=== PATIENT | female | born 1945 | race Caucasian/White ===

== ENCOUNTER 2020-12-02 21:26 | Emergency (ER) | payer MEDICARE, SELFPAY ==
[2020-12-02 21:28] VITALS: BP 163/61; PULSE 103; RESP 18; TEMP 36.9; O2SAT 96; BMI 29.2
--- NOTE | 2020-12-02 21:36 | CTR_ITS ---
PROCEDURE INFORMATION: Exam: CT Head Without Contrast Exam date and time: 12/02/2020 9:38 PM Age: 38 years old Clinical indication: Altered mental status/memory loss; Patient HX: AMS. Patient non-verbal and non-compliant. No personal identification on person. TECHNIQUE: Imaging protocol: Computed tomography of the head without contrast. Radiation optimization: All CT scans at this facility use at least one of these dose optimization techniques: automated exposure control; mA and/or kV adjustment per patient size (includes targeted exams where dose is matched to clinical indication); or iterative reconstruction. COMPARISON: No relevant prior studies available. RADIATION DOSE METRICS: Total DLP (mGy-cm): 969.77 FINDINGS: Brain: No acute intracranial hemorrhage or mass effect. There is mild decreased attenuation in the periventricular white matter, likely from microvascular disease. No definite acute infarct by CT. MRI could be more sensitive/specific for detection, as clinically directed. Cerebral ventricles: Ventricle size appears within normal limits. Bones/joints: No definite acute skull fracture. Paranasal sinuses: Included paranasal sinuses are essentially clear. Mastoid air cells: No significant acute finding. Vasculature: Vascular calcifications in the internal carotid and vertebral basilar systems. CT/CT head wo con* [id number] IMPRESSION: 1. No acute intracranial hemorrhage or mass effect. 2. No definite acute infarct by CT, see above. 3. Other findings discussed above. Radiation Dose CTDIVOL = (mGy): DLP = 969.77 (mGy-cm)
--- NOTE | 2020-12-02 21:39 | XRR_ITS ---
PROCEDURE INFORMATION: Exam: XR Chest Exam date and time: 12/02/2020 9:47 PM Age: 38 years old Clinical indication: Patient HX: AMS. Patient non-verbal and non-compliant. No personal identification on person. TECHNIQUE: Imaging protocol: XR of the chest Views: 1 view. COMPARISON: No relevant prior studies available. FINDINGS: Lungs: Poor inspiration somewhat limits evaluation, especially of the lung bases. No definite CHF/pulmonary edema. Mild lower lung opacities, greater on the left, could represent pneumonitis or atelectasis. Please correlate clinically. Pleural spaces: No visible pneumothorax. No definite pleural fluid. Heart/Mediastinum: Heart size is upper range of normal. Bones/joints: No significant acute finding. Soft tissues: Surgical clips in the right axillary region. XR/XR chest 1V portable [id number] IMPRESSION: 1. Mild lower lung opacities, greater on the left, could represent pneumonitis or atelectasis. 2. Other findings discussed above.
--- NOTE | 2020-12-02 21:40 | ECG_ITS ---
[facility] Test Date: 2020-12-02 Pat Name: ERNIE BHATTI Department: Room: Gender: Female Review Assistant: : 1945 Requested By: Rhett Alexandra Order Number: [id number] [place] MD: Darrick Maher M.D. Measurements Intervals [place] Rate: 99 P: 64 OR: 129 QRS: 55 QRSD: 84 T: 44 QT: 370 QTc: 476 Interpretive Statements SINUS RHYTHM POSSIBLE LEFT ATRIAL ENLARGEMENT [-0.1mV P WAVE IN V1/V2] MODERATE ST DEPRESSION [0.05+ mV ST DEPRESSION] No previous ECG available for comparison Electronically Signed On 12-03-2020 22:45:08 CDT by Darrick Maher M.D. [id number] f
[2020-12-02] MEDS: haloperidol inj 5 mg/mL INJ 1 mL 3 MG IVP (21:49)
[2020-12-02 21:58] LABS: Basophils # 0.1 10^3/uL (0.0-0.1); Basophils % 1.1 %; Eosinophils # 0.2 10^3/uL (0.0-0.8); Eosinophils % 3.7 %; Lymphocytes # 1.1 10^3/uL (0.8-4.8); Lymphocytes % 23.7 %; Mean Corpuscular HGB Conc 31.3 g/dL (30.0-36.0); Mean Corpuscular Hemoglobin 30.8 pg (28.0-34.0); Mean Corpuscular Volume 98.5 fL (81-99); Mean Platelet Volume 10.7 fL (7.4-10.4); Monocytes # 0.6 10^3/uL (0.2-0.9); Neutrophils # 2.71 10^3/uL (1.8-7.7); Neutrophils % 58.8 %; Nucleated Red Blood Cells % 0 %; Platelet Count 199 10^3/cmm (130-400); Red Blood Count 3.25 10^6/uL (4.1-5.3); Red Cell Distribution Width 13.7 % (12.1-15.1); White Blood Count 4.6 10^3/uL (4.0-10.0)
[2020-12-02 22:05] LABS: ABG PCO2 39.4 mmHg (35-45); ABG PH Result 7.43 (7.35-7.45); Arterial Blood Gas Hematocrit 31.2 % (37-47); Blood Gas Sample Site Brachial, left; Blood Gas Sample Type Arterial; HCO3 ABG 26.4 mmol/L (22-26); Oxygen Device ROOM AIR; PO2 ABG 76.6 mmHg (80.0-100.0)
[2020-12-02 22:17] LABS: Lactate (Lactic Acid level) 1.6 mmol/L (0.5-2.2)
[2020-12-02 22:20] LABS: Alanine Aminotransferase 15 U/L (0-33); Albumin Level 3.9 g/dL (3.5-5.2); Alkaline Phosphatase 86 IU/L (35-105); Aspartate Amino Transferase 19 U/L (0-32); Blood Urea Nitrogen 24 mg/dL (6-20); Calcium 9.5 mg/dL (8.5-10.5); Carbon Dioxide 22 mmol/L (22-29); Chloride 106 mmol/L (98-107); Creatine Phosphokinase 92 U/L (26-192); Globulin 2.7 g/dL (1.3-4.6); Glomerular Filtration Rate 80.3 mL/min (90-130); Glucose 105 mg/dL (65-115); Magnesium 1.9 mg/dL (1.7-2.3); Osmolality Calculated 290 mOsm/kg (285-295); Sodium 138 mmol/L (136-145); Total Bilirubin 0.3 mg/dL (0.15-1.2); Total Protein 6.6 g/dL (6.6-8.7)
[2020-12-02 22:21] LABS: Troponin(5th) Baseline 26 ng/L (0-10)
[2020-12-02 22:22] LABS: Alcohol Level < 10 mg/dL (0-10)
[2020-12-02 22:23] LABS: Anion Gap 14.3 (5-19); Potassium 4.3 mmol/L (3.5-5.1)
[2020-12-02 22:27] LABS: Ammonia 23 umol/L (11-51)
--- NOTE | 2020-12-02 23:40 | ECG_ITS ---
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 Measurements Intervals [place] Rate: 94 P: 64 OR: 140 QRS: 33 QRSD: 82 T: 47 QT: 367 QTc: 459 Interpretive Statements SINUS RHYTHM POSSIBLE LEFT ATRIAL ENLARGEMENT [-0.1mV P WAVE IN V1/V2] Compared to ECG 12/02/2020 21:56:44 ST (T wave) deviation no longer present Electronically Signed On 12-03-2020 22:52:27 CDT by Darrick Maher M.D. [id number] f
[2020-12-03 00:04] VITALS: PULSE 78; RESP 18; O2SAT 98
--- NOTE | 2020-12-03 04:54 | ED_ITS ---
HPI - Altered Mental Status General: Chief Complaint: Altered Mental Status Stated Complaint: ams Time Seen by Provider: 12/02/20 21:32 History of Present Illness: HPI narrative: 75-year-old female who entered [facility], and seemed to be disoriented. Evidently, on scene, she did not know her name or where she was. An ambulance was called. She presents here, and does not know her name, does not answer questions appropriately, repeats phrases, and is restless. MD complaint: altered mental status and confusion Onset (ago): unknown Severity: moderate Associated symptoms: Reports other (Unknown) Review of Systems General: Reports: ROS unobtainable due to medical condition Physical Exam Const: EXAM LIMITATIONS: altered mental status and behavioral limitations ORIENTATION/CONSCIOUSNESS: Yes awake and Yes confused; not oriented to person, not oriented to place and not oriented to time HENMT: COMMON NORMALS: normocephalic and Normal external nose present HEAD & SCALP: normal to inspection and normocephalic FACE & SINUS: normal facial exam NOSE: Normal external nose present Eye: COMMON NORMALS: Equal, round and reactive pupils present and EOMs intact bilaterally PUPIL: Yes Equal, round and reactive pupils present Chest: COMMONS NORMALS: normal inspection of the chest Resp: COMMON NORMALS: normal respiratory effort, No retractions, No use of accessory muscles and clear to auscultation bilaterally AUSCULTATION: clear to auscultation bilaterally Cardio: COMMON NORMALS: regular rate and regular rhythm RATE: regular rate RHYTHM: regular rhythm GI: COMMON NORMALS: Normal to inspection, nondistended, normoactive bowel sounds present, Soft to palpation and no masses PALPATION: Yes Soft to palpation Neuro: SENSORIUM/ORIENTATION: No oriented to person, No oriented to place and No oriented to time CRANIAL NERVES: Yes CN normal except as noted COORDINATION/BALANCE: does not sway with eyes open SPEECH: expressive aphasia GAIT: Yes Shuffling gait present SENSORY EXAM: No sensory level loss detected MOTOR EXAM: 5/5 motor strength present throughout COORDINATION: does not sway with eyes open Psych: COMMON NORMALS: negative for activity/motor behavior normal APPEARANCE: Yes grossly normal ATTITUDE: Yes bizarre and Yes agitated ACTIVITY/MOTOR BEHAVIOR: Yes fidgeting SPEECH: Yes delayed THOUGHT PROCESS: confused ATTENTION/CONCENTRATION: Yes attention grossly impaired and Yes concentration grossly impaired MEMORY/COGNITION: Yes memory grossly impaired and Yes cognition grossly impaired Course Vital Signs: Vital signs: Vital Signs Temperature 98.4 F 12/02/20 21:28 Pulse Rate 78 12/03/20 00:04 Respiratory Rate 18 12/03/20 00:04 Blood Pressure 163/61 12/02/20 21:28 Pulse Oximetry 98 12/03/20 00:04 MDM - Altered Mental Status MDM Narrative: Medical decision making narrative: 75-year-old lady found confused in [facility]. She does not know her name. She repeats certain phrases and questions when asked questions. She does follow commands for the most part, at least simple ones. Her arrives, and tells us that she is at her baseline condition, that she is essentially no different than she is on a daily basis. Her hemoglobin is 10. Her BUN is 24. Her labs are otherwise benign. Her head CT was negative for any acute change. Her chest x-ray was negative for any acute change. Her urinalysis was pending, but her , believing that she was fine, decided to sign her out AGAINST MEDICAL ADVICE before urinalysis could be completed. Lab Data: Labs: Lab Results 12/02/20 12/02/20 12/02/20 Range/Units 21:45 21:45 21:45 WBC 4.6 (4.0-10.0) 10^3/ uL RBC 3.25 L (4.1-5.3) 10^6/u L Hgb 10.0 L (11.5-15.3) g/dL Hct 32.0 L (37.0-47.0) % MCV 98.5 (81-99) fL MCH 30.8 (28.0-34.0) pg MCHC 31.3 (30.0-36.0) g/dL RDW 13.7 (12.1-15.1) % Plt Count 199 (130-400) 10^3/c mm MPV 10.7 H (7.4-10.4) fL Neut % (Auto) 58.8 % Lymph % (Auto) 23.7 % [place] % (Auto) 12.0 % Eos % (Auto) 3.7 % Baso % (Auto) 1.1 % Neut # (Auto) 2.71 (1.8-7.7) 10^3/u L Lymph # (Auto) 1.1 (0.8-4.8) 10^3/u L [place] # (Auto) 0.6 (0.2-0.9) 10^3/u L Eos # (Auto) 0.2 (0.0-0.8) 10^3/u L Baso # (Auto) 0.1 (0.0-0.1) 10^3/u L Nucleated RBC % (a uto) 0 % Nucleated RBCs # 0.0 /100WBC Specimen Type Sample Site ABG pH (7.35-7.45) ABG pCO2 (35-45) mmHg ABG pO2 (80.0-100.0) mmH g ABG HCO3 (22-26) mmol/L ABG Base Excess (-2.0-2.0) mmol/ L Ruben Test Hematocrit (37-47) % O2 Delivery Device Ply Cutter ID Sodium 138 (136-145) mmol/L Potassium 4.3 (3.5-5.1) mmol/L Chloride 106 (98-107) mmol/L Carbon Dioxide 22 (22-29) mmol/L Anion Gap 14.3 (5-19) BUN 24 H (6-20) mg/dL Creatinine 0.8 (0.5-0.9) mg/dL GFR Calculation 80.3 L (90-130) mL/min Glucose 105 (65-115) mg/dL Calculated Osmolal ity 290 (285-295) mOsm/k g Lactate 1.6 (0.5-2.2) mmol/L Calcium 9.5 (8.5-10.5) mg/dL Magnesium 1.9 (1.7-2.3) mg/dL Total Bilirubin 0.3 (0.15-1.2) mg/dL AST 19 (0-32) U/L ALT 15 (0-33) U/L Alkaline Phosphata se 86 (35-105) IU/L Ammonia (11-51) umol/L Creatine Kinase 92 (26-192) U/L Troponin T Baselin e (0-10) ng/L Total Protein 6.6 (6.6-8.7) g/dL Albumin 3.9 (3.5-5.2) g/dL Globulin 2.7 (1.3-4.6) g/dL Ethyl Alcohol < 10 (0-10) mg/dL 04/03/21 04/03/21 04/03/21 Range/Units 21:45 21:58 22:05 WBC (4.0-10.0) 10^3/ uL RBC (4.1-5.3) 10^6/u L Hgb (11.5-15.3) g/dL Hct (37.0-47.0) % MCV (81-99) fL MCH (28.0-34.0) pg MCHC (30.0-36.0) g/dL RDW (12.1-15.1) % Plt Count (130-400) 10^3/c mm MPV (7.4-10.4) fL Neut % (Auto) % Lymph % (Auto) % [place] % (Auto) % Eos % (Auto) % Baso % (Auto) % Neut # (Auto) (1.8-7.7) 10^3/u L Lymph # (Auto) (0.8-4.8) 10^3/u L [place] # (Auto) (0.2-0.9) 10^3/u L Eos # (Auto) (0.0-0.8) 10^3/u L Baso # (Auto) (0.0-0.1) 10^3/u L Nucleated RBC % (a uto) % Nucleated RBCs # /100WBC Specimen Type Arterial Sample Site Brachial, left ABG pH 7.43 (7.35-7.45) ABG pCO2 39.4 (35-45) mmHg ABG pO2 76.6 L (80.0-100.0) mmH g ABG HCO3 26.4 H (22-26) mmol/L ABG Base Excess 2.0 (-2.0-2.0) mmol/ L Ruben Test N/a Hematocrit 31.2 L (37-47) % O2 Delivery Device Room air Ply Cutter ID Hinja Sodium (136-145) mmol/L Potassium (3.5-5.1) mmol/L Chloride (98-107) mmol/L Carbon Dioxide (22-29) mmol/L Anion Gap (5-19) BUN (6-20) mg/dL Creatinine (0.5-0.9) mg/dL GFR Calculation (90-130) mL/min Glucose (65-115) mg/dL Calculated Osmolal ity (285-295) mOsm/k g Lactate (0.5-2.2) mmol/L Calcium (8.5-10.5) mg/dL Magnesium (1.7-2.3) mg/dL Total Bilirubin (0.15-1.2) mg/dL AST (0-32) U/L ALT (0-33) U/L Alkaline Phosphata se (35-105) IU/L Ammonia 23 (11-51) umol/L Creatine Kinase (26-192) U/L Troponin T Baselin e 26 H (0-10) ng/L Total Protein (6.6-8.7) g/dL Albumin (3.5-5.2) g/dL Globulin (1.3-4.6) g/dL Ethyl Alcohol (0-10) mg/dL Discharge Plan Discharge Patient Disposition: Left Against Medical Advice Clinical Impression: Delirium due to general medical condition Condition: Stable Discharge Diet: Usual diet Coding Level of Care Code ED Ekg Monitor Tech for Chino Gonzales
== END 2020-12-03 00:09 | disposition left against medical advice (07) ==
PROVIDERS: Emergency Provider Emergency Medicine
DX: F05 Delirium due to known physiological condition (principal); Z53.21 Procedure and treatment not carried out due to patient leaving prior to being seen by health care provider
CPT/HCPCS: 36415; 36600; 70450; 71045; 80053; 80307; 82140; 82550; 82803; 83605; 83735; 84484; 85025; 87040; 93005; 96374; 99284; J1630